=== PATIENT | female | born 1970 | race Caucasian/White ===

== ENCOUNTER 2024-02-17 13:33 | Outpatient (CLI) | payer OTHER | END 2024-02-17 13:34 | disposition home or self-care (01) | LOC: CSHMAMMO 13:33 | PROVIDERS: ATTEND Obstetrics & Gynecology | DX: Z12.31 Encounter for screening mammogram for malignant neoplasm of breast (principal); Z91.89 Other specified personal risk factors, not elsewhere classified | CPT/HCPCS: 77063; 77067 ==